=== PATIENT | male | born 1965 | race Two or more races ===

== ENCOUNTER 2018-07-22 17:21 | Emergency (ER) | payer OTHER ==
[~2018-07-22] VITALS: Ht 193 cm; Wt 83.9 kg
[~2018-07-22 17:21] MED LIST: PRILOSEC20 MG PO; ZANTAC150 MG PO
[2018-07-22] MEDS ORDERED: KEPPRA1000 MG (17:36)
[2018-07-22] MEDS ORDERED: DILANTIN100 MG (17:36)
[2018-07-22] MEDS ORDERED: PREVACID30 M1 (17:37)
[2018-07-22] MEDS ORDERED: VISTARIL25 MG PO (20:17)
== END 2018-07-22 22:28 | disposition home or self-care (01) ==
LOC: ER 17:21
DX: R00.2 Palpitations (principal); F06.4 Anxiety disorder due to known physiological condition